=== PATIENT | female | born 1970 | race Caucasian/White ===

== ENCOUNTER → 2018-05-16 | Outpatient (CLI) | payer BC ==
--- NOTE | 2018-05-16 16:00 | RAD ---
EXAM DESCRIPTION: Lumbosacral w/Oblique,Flex,Ext CLINICAL HISTORY: 47 years Female, LOW BACK PN COMPARISON: MRI scan March 07, 2018 FINDINGS: 7 views of the lumbar spine show vertebral body heights to be maintained. There is transitional anatomy. 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 Sacralization of the L5 transverse processes and rudimentary L5-S1 disc space is seen. There is mild disc space narrowing at L3-4 with moderate disc space narrowing at L4-5. Mild right L3-L5 and left L4-5 facet hypertrophic and degenerative changes are seen. Minimal dextrocurvature of the lumbar spine is seen. Trace anterolisthesis of L3 on L4 seen. There is limited range of motion with flexion and extension. No stability is seen. IMPRESSION: Transitional anatomy is seen with sacralized L5 transverse processes and rudimentary L5-S1 disc space. Mild L3-4 and moderate L4-5 disc disease with facet arthropathy from L3 through L5. Electronically signed by: Renan Hernandez MD 05/16/2018 3:59 PM CDT
== END ==
LOC: RAD 13:24
PROVIDERS: ATTEND Orthopaedic Surgery
DX: M47.26 Other spondylosis with radiculopathy, lumbar region (principal); M48.08 Spinal stenosis, sacral and sacrococcygeal region; M51.36 Other intervertebral disc degeneration, lumbar region; M51.26 Other intervertebral disc displacement, lumbar region

== ENCOUNTER → 2018-09-07 | Outpatient (CLI) | payer BC ==
--- NOTE | 2018-09-07 12:28 | MAM ---
EXAM DESCRIPTION: 3D Screening BILATERAL : Digital Mammography. CLINICAL HISTORY: 48 years Female ANNUAL SCREENING . No complaints. No personal or family history of breast cancer. No childbirth. Postmenopausal for years. No HRT. Lifetime risk of developing breast cancer (Tyrer-Cuzick model)(%): 11.1. COMPARISON: 2-D digital screening bilateral mammography 10/10/2013. No prior reports available. TECHNIQUE: Bilateral CC and MLO projection full-field images, digital tomosynthesis mammographic technique. Bilateral digital 2-D full-field MLO images. CAD not available for tomosynthesis or 2-D images. FINDINGS: The breast parenchymal density pattern is: Scattered areas of fibroglandular density. No skin thickening or nipple retraction. Bilateral fibroglandular elements predominantly central with bilateral nodular densities. Left axillary lymph nodes. Focal asymmetry at the 2:00 position of the middle to posterior third of the left breast approximately 8.5 cm from the nipple. Not associated with calcifications. More dense and focal compared to the prior study. No new focal, stellate mass or density, focal asymmetry , and no suspicious microcalcifications right breast. Stable mammograms compared to prior study. Taking into account, differences in mammographic technique. IMPRESSION: BI-RADS CATEGORY: 0 - INCOMPLETE- Need additional imaging evaluation. FOLLOW-UP: Recall for additional imaging: Targeted ultrasound left breast at the region of interest posterior third upper outer quadrant. Additional diagnostic digital mammographic imaging if indicated by ultrasound findings.. Written communication concerning the IMPRESSION and Follow-up, will be mailed to the patient and referring health care provider. Electronically signed by: Edilson Islas MD 09/07/2018 12:25 PM [employer]
== END ==
LOC: MAMMO 09:00
PROVIDERS: ATTEND Obstetrics & Gynecology
DX: Z12.31 Encounter for screening mammogram for malignant neoplasm of breast (principal)

== ENCOUNTER → 2018-10-11 | Outpatient (CLI) | payer BC ==
--- NOTE | 2018-10-12 15:13 | US ---
EXAM DESCRIPTION: Breast,Left: Ultrasound CLINICAL HISTORY: 48 yearsFemaleABNORMAL MAMMOGRAM COMPARISON: Bilateral digital screening breast tomosynthesis 09/07/2018. TECHNIQUE: Transcutaneous scanning of the left breast utilizing parker-scale and Doppler modes. Scanning performed by the telegraph repeater installer and Dr. Islas. FINDINGS: Scanning of the upper-outer quadrant of the middle third of the left breast. Mostly fatty echotexture. The 2:00 position 7 cm from the nipple, are anechoic structures with circumscribed elder and septation with no vascularity. Wider than tall orientation and predominantly posterior acoustic enhancement. Echogenic structures are seen but not consistently calcification. A multicystic structure measures 1.2 x 0.7 x 0.5 cm.. No dominant solid mass. No parenchymal edema or large calcifications. No overlying skin changes. Normal vascularity. IMPRESSION: Benign exam. BIRAD CATEGORY: 2 BENIGN FINDINGS. RECOMMENDATIONS: FOLLOW UP: Routine digital bilateral mammographic screening, one year interval from August 2018. The FINDINGS and the FOLLOW-UP plan were reviewed in person with the patient after the examination. Written communication explaining the IMPRESSION and FOLLOW-UP will be mailed to the patient and referring care provider. According to the [employer], yearly mammograms are recommended starting at age 40 and continuing as long as a woman is in good health. Any breast change noted on a breast self-exam should be reported promptly to the patient's healthcare provider. Breast MRI is recommended for women with an approximately 20-25% or greater lifetime risk of breast cancer, including women with a strong family history of breast or ovarian cancer and women who have been treated for Hodgkin's disease. A negative mammographic report should not delay tissue diagnosis in patients with significant clinical history or physical findings. Extremely dense breast tissue limits the sensitivity of digital mammography. Electronically signed by: Edilson Islas MD 10/12/2018 3:11 PM CDT
== END ==
LOC: MAMMO 14:21
PROVIDERS: ATTEND Obstetrics & Gynecology
DX: R92.8 Other abnormal and inconclusive findings on diagnostic imaging of breast (principal)